=== PATIENT | female | born 1980 | race Caucasian/White ===

== ENCOUNTER → 2017-09-18 | Outpatient (CLI) | payer BC ==
[~2017-09-18] MED LIST: NAPR1TAB9 PO
--- NOTE | 2017-09-18 16:11 | DIAGNOSTIC IMAGING REPORT ---
ORBITS FOR MRI HISTORY: 37 years-old Female FOR MRI clearance for MRI. COMPARISON: Head CT 12/01/2012 TECHNIQUE: 3 views of the orbits FINDINGS: No opaque foreign body of the orbits identified. Orbits appear intact without acute fracture. Imaged paranasal sinuses appear generally clear. IMPRESSION: No radiopaque foreign body identified. The above report was generated using voice recognition software. It may contain grammatical, syntax or spelling errors. Electronically signed by: Clifford Hernandez M.D. 09/18/2017 4:10 PM Dictated Date/Time: 09/18/2017 4:09 PM
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
== END | disposition home or self-care (01) ==
LOC: C.RADBC 15:26
PROVIDERS: ATTEND Physician Assistant
DX: M54.6 Pain in thoracic spine (principal)